=== PATIENT | female | born 1975 | race Caucasian/White ===

== ENCOUNTER 2016-12-08 02:56 | Inpatient (IN) | payer OTHER ==
[~2016-12-08] VITALS: Ht 160 cm; Wt 144.6 kg
[~2016-12-08 02:56] MED LIST: CLIN150C2 PO; HYDR-4003 PO; ONDA4TAB9 PO
[2016-12-08 02:58] VITALS: BP 147/95; PULSE 98; RESP 18; O2SAT 99
--- NOTE | 2016-12-08 03:11 | ED.REPORT ---
HPI-Abd Pain F 40 and Over Date of Service Dec 08, 2016 ED Provider: Corey Lang MD 41 year old female with a history of bowel obstructions, gastric bypass, and stomach stapling presents to the ER complaining of abdominal pain and vomiting onset yesterday. She also reports diarrhea this morning. Current pain is described as a feeling of severe constipation, but is different than that associated with prior bowel obstructions. Nursing Notes Stated Complaint: ABDOMINAL PAIN/VOMITING Chief Complaint: Female Abdominal Pain Nursing Notes Reviewed: Yes Allergies: Coded Allergies: morphine (Verified Allergy, Severe, 12/08/16) amoxicillin (Verified Allergy, Intermediate, Rash, 12/08/16) Scheduled Clindamycin HCl (Cleocin) 150 Mg Capsule 450 MG PO TID Scheduled PRN Hydrocodone-Acetaminophen 5-325 mg (Hydrocodone-Acetaminophen 5-325 mg) 1 Each Tablet 1 TABLET PO Q4H PRN PRN For Pain Ondansetron ODT (Zofran ODT) 4 Mg Tablet 4 MG PO Q4H PRN PRN For Nausea General Time Seen by MD: 03:03 Chief Complaint Abdominal pain, Vomiting moderate Hx Obtained From: Patient Arrived By: Walk-in Sudden in Onset?: No Onset Occurred: Yesterday Symptom Duration: Since onset Location: : Diffuse Quality: Painful Severity: Current: Moderate Severity: Maximum: Moderate Associated with: Reports: Diarrhea Context Related History: Reports: Bariatric surgery, Bowel obstruction Similar Sx Previous: Yes Past Medical History Past Medical History abd hernia- recurrent incisional hernia Prior bowel obstructions (last CT scan neg 10/2014) Past Surgical History Gastric bypass Stomach stapled for obesity Mesh for abd wall hernia Reports: Cholecystectomy, Tonsillectomy Smoking History Never Smoker Social History Alcohol Use: Denies alcohol use Drug Use: Denies drug use Other Social History: Good social support Ambulatory Status Independent Review of Systems Constitutional: Denies: Chills, Fever Respiratory: Denies: Non-productive cough, Shortness of breath Cardiovascular: Denies: Chest pain GI: Reports: Abdominal pain, Diarrhea, Nausea, Vomiting Female: Denies: Dysuria, Flank pain, Pelvic pain Complete sys rev & neg: except as marked. Physical Exam Difficult examination due to body habitus. Vital Signs Vital Signs (First) Date Time Temp Pulse Resp B/P Pulse Ox O2 Delivery O2 Flow Rate FiO2 12/08/16 02:58 36.6 98 18 147/95 99 Room Air Initial VS: Reviewed Head / Eyes: Atraumatic, Normocephalic Neck: Supple, Non-tender, Full range of motion Extremities: Vascular intact, Neuro intact, No swelling, No tenderness Skin: Warm, Dry, No cyanosis Neurologic: Alert, Oriented, Nonfocal General/Constitutional: Awake, Alert, Well developed, Well nourished Appearance / Presentation: Positive: Obese, morbidly Respiratory / Chest: Breath sounds NL, Breath sounds = bilat, No respiratory distress, No rales, No rhonchi, No wheezing, No stridor Cardiovascular: Heart rate NL, Regular rhythm, Heart sounds NL, Peripheral circulation NL Abdomen: Soft, No guarding, No rebound, No distention Tenderness/Guarding/Rebound: Positive: Tender diffuse Back: Inspection NL, Non-tender, No CVA tenderness Interpretation & Diagnostics X-Ray Abdominal Interpretation Normal. Paucity of bowel gas. Interpretation / Wet Read by: Wet read ED physician Re-Eval/Medical Decision Med Decision/Clinical Course 31-year-old female with a history of recurrent small bowel obstructions presents with abdominal pain. Initially a three-view abdomen was obtained which was non-diagnostic. IV line and labs were ordered at that point and her care is being turned over change of shift to Dr. Saunders. Re-Evaluation/Progress : Time of Eval: 04:59 Re-Evaluation/Progress Note: Discussed radiology results and updated patient on the plan of care. Counseled Regarding: Diagnosis Discharge & Departure Shift Change Sign-Out Patient Care Transferred: Yes Discussed Complaint(s): Yes Imaging Studies: Done, reviewed by me Primary Impression: Abdominal pain Abdominal location: generalized Qualified Code: R10.84 - Generalized abdominal pain Discharge Condition All VS Reviewed: Yes Condition: Stable Referrals: AURORA SCHERER (PCP) Care Transferred to: Dr. Saunders Care Transferred at: 06:00 Scribe Attestation Portions of this note were transcribed by Solomon Jolly. I, Dr. Lang, personally performed the history, physical exam and medical decision-making; I reviewed and confirmed the accuracy of the information in the transcribed note. Signed by: Karen Silva. 12/08/2016, 05:00 Corey Lang MD Dec 08, 2016 03:11 SOLOMON JOLLY Dec 08, 2016 03:17 Parviz Messina Dec 08, 2016 04:48
[2016-12-08] MEDS ORDERED: Ondansetron 8 mg ODT Tablet PO ONE (03:45)
[2016-12-08] MEDS ORDERED: 0.9% Sodium Chloride 1,000 ML IV ONE (04:36)
[2016-12-08] MEDS ORDERED: Ondansetron 2 mg/mL 2 mL Inj IVPUSH PRN ×3 (04:40→14:55)
[2016-12-08] MEDS ORDERED: Pantoprazole 4 mg/mL 10 mL Inj IVPUSH ONE (04:40)
[2016-12-08] MEDS ORDERED: Iohexol 300 mg/mL 30 mL Inj PO ONE (06:05)
[2016-12-08] MEDS: HYDROmorphone 0.5 mg/0.5 mL iSecure Syringe IVPUSH PRN ×3 (06:39→19:15)
[2016-12-08 06:44] LABS: BASOPHILS % (AUTO) 0.5 % (0-3); EOSINOPHILS % (AUTO) 0.9 % (0-5); MONOCYTES % (AUTO) 7.8 % (4-12); Mean Corpuscular Hemoglobin 27.9 pg (27.0-35.0); Mean Corpuscular Volume 87.2 fL (81-100); NEUTROPHILS % (AUTO) 72.8 % (40-74); Platelet Count 380 bil/L (150-400)
[2016-12-08 06:57] LABS: Magnesium 2.2 mg/dL (1.6-2.6)
[2016-12-08] MEDS ORDERED: Promethazine Inj 25 MG in Dextrose 5%-Pha MIX 50 ML IV ONE (07:40)
--- NOTE | 2016-12-08 08:56 | DRSVH ---
PROCEDURE: CT ABDOMEN AND PELVIS WITH CONTRAST ([id number]) INDICATIONS: vomiting ho SBO TECHNIQUE: After the administration of intravenous contrast, 5 mm thick sections acquired from the diaphragm to the symphysis. 5 mm coronal and sagittal reformats were acquired. For radiation dose reduction, the following was used: automated exposure control, adjustment of mA and/or kV according to patient chante e. COMPARISON: [facility], CT, ABD/PELVIS W/CON (PNL), 11/10/2014, 0:16. FINDINGS: Image quality: Excellent. ABDOMEN: Lung bases: Lung bases are clear. Heart size is normal. Solid organs: Liver and spleen are normal in size and enhancement. Gallbladder is surgically absent . No change in prominence of the extrahepatic bile duct caliber. The Pancreas enhances normally. No adrenal nodules. Kidneys demonstrate normal size and enhancement, without hydronephrosis. Peritoneum and bowel: Gastric bypass has been performed, as before. There is mild distention of the d uodenum. Moderate diffuse distention of the jejunum and proximal ileum is present . There is a gradua l transition between dilated and nondilated small bowel within the right lower quadrant of the abdome n, as noted on the montage panel. The terminal ileum is decompressed, as is the colon. The appendix i s not seen. No evidence of appendicitis. No free fluid or air. Nodes and vessels: No retroperitoneal or mesenteric adenopathy by size criteria. Aorta and inferior vena cava are normal in size. Miscellaneous: There is a 56 mm diameter fat-containing periumbilical hernia involving the left anter ior pelvic wall, which is slightly increased in size. PELVIS: Genitourinary: The urinary bladder is decompressed. Miscellaneous: No inguinal hernias or adenopathy. Bones: No suspicious bony lesions. No vertebral body compression fractures. IMPRESSION: 1. Small bowel obstruction. There is a transition point between dilated and nondilated small bowel wi thin the right lower quadrant of the abdomen. 2. Appendix not seen. No evidence of appendicitis. 3. Increased fat-containing periumbilical hernia. Dictated by: Wagner Campuzano M.D. on 12/08/2016 at 8:54 Approved by: Wagner Campuzano M.D. on 12/08/2016 at 8:54
--- NOTE | 2016-12-08 09:03 | DRSVH ---
PROCEDURE: X-RAY ACUTE ABDOMINAL SERIES ([id number]) INDICATIONS: abd pain, Hx SBO TECHNIQUE: One view chest and two views of the abdomen were acquired. COMPARISON: [facility], CR, XR ABD ACUTE SERIES 3VW, 06/26/2015, 1:07. [facility], CR, ABD ACUTE SERIES, 11/09/2014, 22:05. FINDINGS: Surgical changes and devices: None. Chest: Lungs are clear. Heart size is normal. No pleural effusions. No pneumoperitoneum. Abdomen: Bowel gas pattern is normal. No suspicious calcifications. Visualized solid organ contour s appear normal. Bones: No suspicious bony lesions. IMPRESSION: Normal for age. No small bowel obstruction pattern seen. Body habitus is large, and dep ending on clinical status followup by CT scanning may be warranted for more accurate assessment. Dictated by: Boom Nunn M.D. on 12/08/2016 at 9:00 Approved by: Boom Nunn M.D. on 12/08/2016 at 9:00
[2016-12-08 09:40] VITALS: BP 137/88; PULSE 71; RESP 12; O2SAT 96
[2016-12-08] MEDS ORDERED: 0.9% Sodium Chloride 1,000 ML IV SCH (09:46)
[2016-12-08 10:38] VITALS: BP 149/101; PULSE 78; RESP 18; O2SAT 98
--- NOTE | 2016-12-08 10:40 | NUR ---
Admit Pt arrived to [facility] rm 1015 from the ED via gurney at approx 1030. Rec'd report from Tanna Hill RN. IV TKO, NG tube connected to suction by tack welder. ICE MAKER oriented pt to the room and call light. Pt denies nausea or pain at this time. Pt was able to walk to the hospital bed with a steady gait.
[2016-12-08] MEDS ORDERED: ESOM40CA41 PO (11:31)
[2016-12-08] MEDS ORDERED: MAGN500C4 PO (11:32)
[2016-12-08] MEDS ORDERED: Influenza (Adult) Vaccine 0.5 mL Syringe IM ONE (12:10)
[2016-12-08] MEDS ORDERED: Polyethylene Glycol (PEG) 17 Gm Powder PO PRN (14:55)
[2016-12-08] MEDS ORDERED: Alum-Mag Hydrox-Simeth 30 mL Suspension PO PRN (14:55)
--- NOTE | 2016-12-08 15:15 | PCM.HPMED ---
Subjective Date of Service Dec 08, 2016 Primary Provider: Admitting Physician: Jozef Loving Primary Care Physician: Blaine Clement Attending Physician: Jozef Loving Chief Complaint: abdominal pain, vomiting History of Present Illness: 41 year old female with past history most notable for multiple abdominal surgeries and small bowel obstruction (as noted below) presents today with report of abdominal pain that began yesterday and nausea and vomiting that started earlier this morning. Her symptoms reminded her of her prior episode of small bowel obstruction. In the ED NG tube was placed and patient reports improvement in her abdominal pain now after having received a dose of IV Dilaudid. Allergies Coded Allergies: morphine (Verified Allergy, Severe, 12/08/16) amoxicillin (Verified Allergy, Intermediate, Rash, 12/08/16) Home Medications Esomeprazole Magnesium 40 Mg Capsule.Dr 40 Mg PO DAILY Magnesium Oxide 500 Mg Capsule 1,000 Mg PO HS Exam Vital Signs & I/O Vital Sign- Last 8 Hours Date Time Temp Pulse Resp B/P Pulse Ox O2 Delivery O2 Flow Rate FiO2 12/08/16 10:38 36.6 78 18 149/101 98 Room Air 12/08/16 10:11 36.6 71 12 137/88 96 Room Air 12/08/16 09:40 71 12 137/88 96 Room Air Lab & Micro Results Laboratory Tests Test 12/08/16 06:25 12/08/16 07:55 White Blood Count 8.7th/mm3 (3.8-10.1) Red Blood Count 4.94mil/mm3 (3.90-5.20) Hemoglobin 13.8g/dL (12.0-15.6) Hematocrit 43.1% (35.0-46.0) Mean Corpuscular Volume 87.2fL (81-100) Mean Corpuscular Hemoglobin 27.9pg (27.0-35.0) Mean Corpuscular Hemoglobin Concent 32.0% (32.0-37.0) Red Cell Distribution Width 13.4% (12.3-15.4) Platelet Count 380bil/L (150-400) Neutrophils (%) (Auto) 72.8% (40-74) Lymphocytes (%) (Auto) 17.8% (14-46) Monocytes (%) (Auto) 7.8% (4-12) Eosinophils (%) (Auto) 0.9% (0-5) Basophils (%) (Auto) 0.5% (0-3) Sodium Level 139mEq/L (134-144) Potassium Level 5.0mEq/L (3.5-5.2) Chloride Level 100mEq/L (97-108) Carbon Dioxide Level 25mmol/L (18-29) Blood Urea Nitrogen 9mg/dL (6-24) Creatinine 0.58mg/dL (0.57-1.00) Estimat Glomerular Filtration Rate 163mL/min (>59) Glucose Level 117mg/dL (60-99) Calcium Level 9.2mg/dL (8.5-10.1) Magnesium Level 2.2mg/dL (1.6-2.6) Total Bilirubin 0.5mg/dL (0.0-1.2) Aspartate Amino Transf (AST/SGOT) 22U/L (0-50) Alanine Aminotransferase (ALT/SGPT) 15U/L (0-32) Alkaline Phosphatase 88U/L (25-150) Total Protein 7.3g/dL (6.4-8.4) Albumin 3.8g/dL (3.4-5.0) Lipase 20U/L (13-60) Hold Urine Received (Received) Result Diagram: 12/08/1662412/08/16624 Review of Systems: Constitutional: Negative, except as otherwise mentioned in the history above. Ophthalmologic: Negative, except as otherwise mentioned in the history above. Cardiovascular: Negative, except as otherwise mentioned in the history above. Respiratory: Negative, except as otherwise mentioned in the history above. Gastrointestinal: Negative, except as otherwise mentioned in the history above. Genitourinary: Negative, except as otherwise mentioned in the history above. Musculoskeletal: Negative, except as otherwise mentioned in the history above. Neurological: Negative, except as otherwise mentioned in the history above. Psychiatric: Negative, except as otherwise mentioned in the history above. Hematologic/Lymphatic: Negative, except as otherwise mentioned in the history above. Allergic/Immunologic: Negative, except as otherwise mentioned in the history above. PMH 1. GERD 2. Obesity Surgical History 1. Gastric stapling around 2002 2. s/p around 2004 3. ventral hernia repair and mesh placement around 2008 4. First episode of SBO around 2011 Family History Mother with lung cancer in her 60's Father with history of colon cancer in his late 60's Both parents with hypertension Social History Hx Alcohol Use: Yes (occ) Hx Substance Use: No Smoking Status: Never Smoker Exam Vital Signs Vital Sign - Last Date Time Temp Pulse Resp B/P Pulse Ox O2 Delivery O2 Flow Rate FiO2 12/08/16 10:38 36.6 78 18 149/101 98 Room Air General: Alert, Oriented X3, Cooperative, No Acute Distress Head: Normal Eyes: PERRLA, EOMI, Scleral Anicteric Nose: Mucous Membr Moist/[place] Mouth: Mucous Membr Moist/[place] Neck: Supple Chest & Lungs: Chest Wall Normal, Clear to auscultation & percussion Cardiovascular: Regular Rate/Rhythm Abdomen: Tender (mild and diffuse. no reboung. no guarding), Non-distended, Normoactive bowel tones, Soft, Other (NG tube in place) Extremities: No cyanosis/clubbing/edma bilat Neurological: Grossly Neurologically Intact, Cranial Nerves 2-12 Intact, Normal Speech Lab and Diagnostics Result Diagram: 12/08/1662412/08/16624 X-Rays, CTs and MRIs Date of Service: 12/08/164 PROCEDURE: X-RAY ACUTE ABDOMINAL SERIES ([id number]) . IMPRESSION: Normal for age. No small bowel obstruction pattern seen. Body habitus is large, and depending on clinical status followup by CT scanning may be warranted for more accurate assessment. Dictated by: Boom Nunn M.D. on 12/08/2016 at 9:00 Approved by: Boom Nunn M.D. on 12/08/2016 at 9:00 ------ Date of Service: 12/08/16 0601 PROCEDURE: CT ABDOMEN AND PELVIS WITH CONTRAST ([id number]) IMPRESSION: 1. Small bowel obstruction. There is a transition point between dilated and nondilated small bowel within the right lower quadrant of the abdomen. 2. Appendix not seen. No evidence of appendicitis. 3. Increased fat-containing periumbilical hernia. Dictated by: Wagner Campuzano M.D. on 12/08/2016 at 8:54 Approved by: Wagner Campuzano M.D. on 12/08/2016 at 8:54 Assessment & Plan 41 year old female with prior history of SBO presents with acute onset of abdominal pain and vomiting with imaging suggestive of acute SBO # Acute SBO. present on admission. ongoing - c/w NG tube - NPO - supportive care including IVF, anti-emetics and pain medication as needed - encourage ambulation - if symptoms persist in next 24-48h will consider official surgery consult. # History of GERD - IV Protonix while NPO Expected length of hospital stay is greater than 2 midnights and likely 2-3 days GI Prophylaxis: Proton Pump Inhibitor VTE Prophylaxis: Sub-Q Heparin (Unfractionated) Resuscitation Status: CPR: Attempt Resuscitation (discussed and verified with the patient) Time spent 50 min Jozef Loving Dec 08, 2016 15:15
[2016-12-08 15:20] VITALS: BP 129/83; PULSE 68; RESP 18; O2SAT 97
[2016-12-08] MEDS: Dextrose 5% 0.45% NaCl 1,000 ML IV SCH ×2 (15:20→19:15)
[2016-12-08] MEDS: Heparin 5,000 Unit/mL Inj SUBQ SCH ×2 (17:21→23:55)
[2016-12-08 19:56] VITALS: BP 118/77; PULSE 66; RESP 18; O2SAT 94
[2016-12-08 23:57] VITALS: BP 144/93; PULSE 85; RESP 18; O2SAT 93
[2016-12-09] MEDS: HYDROmorphone 0.5 mg/0.5 mL iSecure Syringe IVPUSH PRN (02:27)
--- NOTE | 2016-12-09 02:41 | NUR ---
Bowel Function Abd. soft with BT.Passing flatus and having loose stools x4 thus far.NG clamped and denies nausea.Taking occassional sips and chips and lawanda. well.Pain cramping in nature and controlled with IVP dilaudid.Sleeping soundly at this time and resting comfortably.Will cont. to monitor.
[2016-12-09 05:20] VITALS: BP 119/76; PULSE 59; RESP 20; O2SAT 98
[2016-12-09] MEDS ORDERED: Pantoprazole 4 mg/mL 10 mL Inj IVPUSH SCH (07:30)
[2016-12-09] MEDS: Heparin 5,000 Unit/mL Inj SUBQ SCH (08:28)
[2016-12-09 09:46] VITALS: BP 133/82; PULSE 71; RESP 22; O2SAT 98
[2016-12-09] MEDS: Dextrose 5% 0.45% NaCl 1,000 ML IV SCH (09:52)
--- NOTE | 2016-12-09 13:00 | NUR ---
Bowel Function Pt had no c/o nausea and no vomiting. Pt has bowel tones and passing gas. Pt has had multiple loose stools and states that she is "feeling better." She has had some occasional abdominal cramping but says that it feels much better. Pt tolerated her lunch of macaroni and cheese. Will continue to monitor.
--- NOTE | 2016-12-09 13:31 | PCM.DIMED ---
Discharge Instructions Date of Service Dec 09, 2016 Dates of Hospitalization Dec 08, 2016 at 10:16 Discharge Diagnosis Discharge Diagnosis # Acute small bowel obstruction. present on admission. clinically resolved. # History of gastroesophageal reflux disease (GERD) Diet No restrictions Activity No restrictions Call your provider Fever or Chills, Shortness of breath, Vomitting, Excessive diarrhea Patient Instructions Seek immediate medical attention if any new or worsening signs or symptoms occur. Follow-up plan 1. Followup with primary care provider in about 1-2 weeks Jozef Loving Dec 09, 2016 13:31
--- NOTE | 2016-12-09 14:25 | NUR ---
NG Tube D/C'd NG tube at 1030.
--- NOTE | 2016-12-09 14:26 | NUR ---
Discharge Pt was d/c'd from [facility] room 1015 at 1415 via private vehicle home. All discharge instructions and education was done with pt. All questions were answered. No new RX were given. No items in the safe or in the pharmacy. All belongings are with the pt. Pt to follow up with PCP in 1-2 weeks. Pt will make her apt.
--- NOTE | 2016-12-09 16:39 | PCM.DC.MED ---
Discharge Summary Date of Service Dec 09, 2016 Dates of Hospitalization Date of Hospital Admission Dec 08, 2016 at 10:16 Date of Discharge: Dec 09, 2016 Providers: Admitting Physician: Jozef Loving Primary Care Physician: Blaine Clement Attending Physician: Jozef Loving Diagnosis at Time of Discharge Diagnosis at Time of Discharge # Acute small bowel obstruction. present on admission. clinically resolved. # History of gastroesophageal reflux disease (GERD) Procedures XRay, CTs & MRIs Date of Service: 12/08/16 0314 PROCEDURE: X-RAY ACUTE ABDOMINAL SERIES ([id number]) . IMPRESSION: Normal for age. No small bowel obstruction pattern seen. Body habitus is large, and depending on clinical status followup by CT scanning may be warranted for more accurate assessment. Dictated by: Boom Nunn M.D. on 12/08/2016 at 9:00 Approved by: Boom Nunn M.D. on 12/08/2016 at 9:00 ------ Date of Service: 12/08/16 0601 PROCEDURE: CT ABDOMEN AND PELVIS WITH CONTRAST ([id number]) IMPRESSION: 1. Small bowel obstruction. There is a transition point between dilated and nondilated small bowel within the right lower quadrant of the abdomen. 2. Appendix not seen. No evidence of appendicitis. 3. Increased fat-containing periumbilical hernia. Dictated by: Wagner Campuzano M.D. on 12/08/2016 at 8:54 Approved by: Wagner Campuzano M.D. on 12/08/2016 at 8:54 Brief History 41 year old female with past history most notable for multiple abdominal surgeries and small bowel obstruction (as noted below) presents today with report of abdominal pain that began yesterday and nausea and vomiting that started earlier this morning. Her symptoms reminded her of her prior episode of small bowel obstruction. In the ED NG tube was placed and patient reports improvement in her abdominal pain now after having received a dose of IV Dilaudid. Hospital Course # Acute SBO. present on admission. - clinically resolved faster than expected - pt had a large BM the night of admission - she continued to have BM and flatus by day of d/c. NG tube was removed and she has tolerated advanced diet without further n/v or abd pain and requesting d /c home # History of GERD. stable by day of d/c lungs CTA bilat. abdomen soft, nt, nd, +bs Exam Vital Signs (Last) Date Time Temp Pulse Resp B/P Pulse Ox O2 Delivery O2 Flow Rate FiO2 12/09/16 09:46 36.7 71 22 133/82 98 Room Air Test 12/08/16 06:25 12/08/16 07:55 White Blood Count 8.7th/mm3 (3.8-10.1) Red Blood Count 4.94mil/mm3 (3.90-5.20) Hemoglobin 13.8g/dL (12.0-15.6) Hematocrit 43.1% (35.0-46.0) Mean Corpuscular Volume 87.2fL (81-100) Mean Corpuscular Hemoglobin 27.9pg (27.0-35.0) Mean Corpuscular Hemoglobin Concent 32.0% (32.0-37.0) Red Cell Distribution Width 13.4% (12.3-15.4) Platelet Count 380bil/L (150-400) Neutrophils (%) (Auto) 72.8% (40-74) Lymphocytes (%) (Auto) 17.8% (14-46) Monocytes (%) (Auto) 7.8% (4-12) Eosinophils (%) (Auto) 0.9% (0-5) Basophils (%) (Auto) 0.5% (0-3) Sodium Level 139mEq/L (134-144) Potassium Level 5.0mEq/L (3.5-5.2) Chloride Level 100mEq/L (97-108) Carbon Dioxide Level 25mmol/L (18-29) Blood Urea Nitrogen 9mg/dL (6-24) Creatinine 0.58mg/dL (0.57-1.00) Estimat Glomerular Filtration Rate 163mL/min (>59) Glucose Level 117mg/dL (60-99) Calcium Level 9.2mg/dL (8.5-10.1) Magnesium Level 2.2mg/dL (1.6-2.6) Total Bilirubin 0.5mg/dL (0.0-1.2) Aspartate Amino Transf (AST/SGOT) 22U/L (0-50) Alanine Aminotransferase (ALT/SGPT) 15U/L (0-32) Alkaline Phosphatase 88U/L (25-150) Total Protein 7.3g/dL (6.4-8.4) Albumin 3.8g/dL (3.4-5.0) Lipase 20U/L (13-60) Hold Urine Received (Received) Discharge Medications Discharge Medications Esomeprazole Magnesium (Nexium) 40 Mg Capsule.dr 40 MG PO DAILY (Reported) Magnesium Oxide (Magnesium) 500 Mg Capsule 1,000 MG PO HS (Reported) Followup Plan Disposition: Home Follow-up plan 1. Followup with primary care provider in about 1-2 weeks Discharge Diet: No restrictions Discharge Activity: No restrictions Patient Instructions Seek immediate medical attention if any new or worsening signs or symptoms occur. Time spent 30 min copies to: [facility] Jozef Avitia Dec 09, 2016 16:39
== END 2016-12-09 14:18 | disposition home or self-care (01) | DRG 390 ==
LOC: SED 02:56 → OSC 10:16
PROVIDERS: ADMIT Internal Medicine; ATTEND Internal Medicine
PROC: 0D9670Z Drainage of Stomach with Drainage Device, Via Natural or Artificial Opening (ICD-10-PCS; principal; 2016-12-08)
DX: K56.69 Other intestinal obstruction (principal); K21.9 Gastro-esophageal reflux disease without esophagitis; Z98.84 Bariatric surgery status

== ENCOUNTER 2017-03-30 20:40 | Emergency (ER) | payer OTHER ==
[~2017-03-30] VITALS: Ht 160 cm; Wt 143.0 kg
[~2017-03-30 20:40] MED LIST changes: -CLIN150C2 PO; +ESOM40CA41 PO; -HYDR-4003 PO; +MAGN500C4 PO; -ONDA4TAB9 PO
[2017-03-30 21:20] VITALS: BP 137/98; RESP 18; O2SAT 96
--- NOTE | 2017-03-30 22:05 | ED.REPORT ---
HPI-General Illness Date of Service March 30, 2017 ED Provider: Corey Lang MD Pt is a 41 y.o. female who presents to the ED c/o left jaw pain and swelling onset yesterday. Pt reports associated nasal congestion, intermittent headaches , and left anterior neck tenderness. She denies a fever. Pt states that she works from home and denies any known exposure to mumps. Nursing Notes Stated Complaint: NECK PAIN,LUMP Chief Complaint: ENT & Mouth Nursing Notes Reviewed: Yes Allergies: Coded Allergies: morphine (Verified Allergy, Severe, 12/08/16) amoxicillin (Verified Allergy, Intermediate, Rash, 12/08/16) Scheduled Esomeprazole Magnesium (Nexium) 40 Mg Capsule.dr 40 MG PO DAILY Magnesium Oxide (Magnesium) 500 Mg Capsule 1,000 MG PO HS General Time Seen by MD: 21:38 Chief Complaint Other (Jaw pain and swelling, left) Hx Obtained From: Patient Arrived By: Walk-in Sudden in Onset?: Yes Onset Occurred: Yesterday Symptom Duration: Since onset Location: : Face (Jaw, left): Neck Quality: Painful Severity: Current: Mild Severity: Maximum: Moderate Recent Healthcare: No recent doctor visit, No recent hospitalization Similar Sx Previous: No Past Medical History Past Medical History abd hernia- recurrent incisional hernia Prior bowel obstructions (last CT scan neg 10/2014) Past Surgical History Gastric bypass Stomach stapled for obesity Mesh for abd wall hernia Reports: Cholecystectomy, Tonsillectomy Smoking History Never Smoker Social History Alcohol Use: Denies alcohol use Drug Use: Denies drug use Other Social History: Good social support Ambulatory Status Independent Review of Systems Jaw pain, left Jaw swelling, left Full Review of Systems Constitutional: Denies: Fever Ears / Nose / Throat: Reports: Nasal congestion Musculoskeletal: Reports: Neck pain Neurologic: Reports: Headache Complete sys rev & neg: except as marked. Physical Exam Vital Signs Vital Signs Date Time Temp Pulse Resp B/P Pulse Ox O2 Delivery O2 Flow Rate FiO2 03/30/17 22:57 87 16 145/89 97 Room Air 03/30/17 21:20 36.4 76 18 137/98 96 Room Air Initial VS: Reviewed, Vital signs normal Abdomen / GI: No distention Extremities: Vascular intact, Neuro intact Skin: Warm, Dry, No cyanosis Neurologic: Alert, Oriented, Nonfocal Psychiatric: Mood/affect normal, Behavior normal, Normal thought content General/Constitutional: Awake, Alert, No acute distress, Well appearing, Well developed, Well hydrated, Well nourished, Not toxic appearing Appearance / Presentation: Positive: Obese, morbidly Head / Eyes: Atraumatic, Normocephalic, PERRL ENT: Atraumatic, Airway patent, Mucous membranes moist Swelling and tenderness over angle of left jaw Neck: Atraumatic Soft Tissue Neck: Positive: Cervical adenopathy L... Respiratory / Chest: Atraumatic, Breath sounds NL, Breath sounds = bilat, No respiratory distress Cardiovascular: Heart rate NL, Regular rhythm, Heart sounds NL, Peripheral circulation NL Interpretation & Diagnostics Lab Results Interpretation Test 03/30/17 22:50 03/31/17 01:28 Hold Purple Top Tube Received (Received) Lab Results Interpretation: Mumps IgG, IgM, and buccal swab are pending Re-Eval/Medical Decision Med Decision/Clinical Course 41-year-old female who has mild URI symptoms for a day and a half with development of left parotitis. We are in the midst of a community outbreak in this [facility], especially amongst people from the [facility]. No known contacts with anyone with mumps or from that community. Mumps IgG, IgM, and buccal swab were all obtained and are pending. It is recommended that all her previous contacts be immunized if not already fully protected. Her case will be reported to the health department for appropriate epidemiological follow-up later today. Source of Hx: Old records Time of Eval: 22:50 Re-Evaluation/Progress Note: Pt rechecked. Discussed plan for Health Department to contact the pt. Pt notified that lab results will be available in the next few days and she will be contacted regarding them. Pt understands and agrees with plan for discharge. Counseled Regarding: Diagnosis, Need for follow-up, When/why to return to ED Discharge & Departure Primary Impression: Acute parotitis Disposition: Home Discharge Condition All VS Reviewed: Yes Condition: Improved Patient Instructions: Mumps (ED) Additional Instructions: In the setting of a community outbreak of mumps, the swelling of the salivary gland is most likely mumps. We have initiated testing to see for sure, but that will take a couple of days. Someone from the health department will call you tomorrow to gather more information about your previous exposures and the people you have contacted. You need to stay away from other people in the meantime, and if you have to associated with others you need to wear a mask. You can get more information in the morning from the health department about this. Make sure all of your contacts are fully immunized to mumps. [facility] KAYLENE (PCP) Karen Attestation Portions of this note were transcribed by Bandar Arzate. I, Dr. Lang personally performed the history, physical exam and medical decision-making; I reviewed and confirmed the accuracy of the information in the transcribed note. Signed by: Karen Roach, 03/30/17 and [id number]. copies to: [facility] Corey Zamudio MD March 30, 2017 22:05 BANDAR ARZATE March 30, 2017 22:25
[2017-03-30 22:57] VITALS: BP 145/89; PULSE 87; RESP 16; O2SAT 97
== END 2017-03-30 23:01 | disposition home or self-care (01) ==
LOC: SED 20:40
DX: K11.21 Acute sialoadenitis (principal); Z88.1 Allergy status to other antibiotic agents; Z88.5 Allergy status to narcotic agent

== ENCOUNTER 2017-04-03 06:48 | Emergency (ER) | payer OTHER ==
[~2017-04-03] VITALS: Ht 160 cm; Wt 143.6 kg
--- NOTE | 2017-04-03 07:01 | ED.REPORT ---
HPI-Facial Injury Date of Service April 03, 2017 ED Provider: Rene Saunders DO 41 year old female presents to the ER complaining of rash and swelling around her left eye onset four days ago. Symptoms began as a red lump above her left eye. She in initially thought that it was a developing pimple and treated with warm compresses and toothpaste, but then became concerned when she awakened with worsening pain and diffuse swelling around her left eye. She endorses a "burning" sensation and itching to the affected area. Patient denies any blistering, oozing, or purulent drainage of the affected area. She was seen here in the department four days ago complaining of left neck pain and swelling , though she reports that these symptoms are mostly resolved. At that time there was concern for mumps. Nursing Notes Stated Complaint: POSS MUMPS/INFECTED EYE Nursing Notes Reviewed: Yes Allergies: Coded Allergies: morphine (Verified Allergy, Severe, 12/08/16) amoxicillin (Verified Allergy, Intermediate, Rash, 12/08/16) Scheduled Clindamycin (Clindamycin) 300 Mg Capsule 450 MG PO TID Esomeprazole Magnesium (Nexium) 40 Mg Capsule.dr 40 MG PO DAILY Magnesium Oxide (Magnesium) 500 Mg Capsule 1,000 MG PO HS Valacyclovir (Valacyclovir) 1,000 Mg Tablet 1,000 MG PO TID General Time Seen by Provider: 07:01 Chief Complaint Swelling (Left Eye) Hx Obtained From: Patient Arrived By: Walk-in Onset Occurred: 4 days ago Symptom Duration: Since onset Location: : Lid left Quality: Painful Severity: Current: Moderate Severity: Maximum: Moderate Similar Sx Previous: No Past Medical History Past Medical History abd hernia- recurrent incisional hernia Prior bowel obstructions (last CT scan neg 10/2014) Past Surgical History Gastric bypass Stomach stapled for obesity Mesh for abd wall hernia Reports: Cholecystectomy, Tonsillectomy Smoking History Never Smoker Social History Alcohol Use: Denies alcohol use Drug Use: Denies drug use Other Social History: Good social support Ambulatory Status Independent Review of Systems Review of Systems Note: +Left Eye Swelling Constitutional: Denies: Chills, Fever Eyes: Reports: Eye pain left, Denies: Discharge bilateral, Visual loss bilateral Skin: Reports Rash Complete sys rev & neg: except as marked. Physical Exam Initial Vital Signs Vital Signs (First) Date Time Temp Pulse Resp B/P Pulse Ox O2 Delivery O2 Flow Rate FiO2 04/03/17 07:03 36.9 78 18 156/91 95 Room Air Initial VS: Reviewed Respiratory: Breath sounds normal, Clear to auscultation, No respiratory distress Cardiovascular: Regular rate & rhythm, Heart sounds normal, Intact distal pulses Abdomen / GI: Soft, Non-tender, No guarding, No rebound, No distention Extremities: Vascular intact, Neuro intact, No swelling, No tenderness Skin: Warm, Dry, No cyanosis Head / Eyes: Normocephalic, PERRL, EOMI (without pain), No scleral icterus, Conjunctiva NL, Cornea clear, No corneal abrasion Left periorbital swelling and erythema. 3 punctate scabs to the left upper eyelid. ENT: Atraumatic, Airway patent, Mucous membranes moist, Pharynx NL, Nose exam NL, No sinus tenderness, No facial swelling, Gums/dentition NL Neck: Supple, Full range of motion, Non-tender, No midline vertebral tend Mild submandibular swelling. Neurologic: Oriented X3, Speech NL, No motor deficits, No sensory deficits General/Constitutional: Awake, Alert, Well developed, Well nourished Appearance / Presentation: Positive: Obese Procedures Slit Lamp Exam No fluroscein uptake. No dendritic lesions. Time: 07:58 Procedure Performed by: ED physician Which Eye: Left Eyelid / Conjunctiva / Sclera: Sclera normal Cornea/Ant Chamber/Iris/Lens: Cornea normal Vitreous / Retina / Optic Nerv: Retina normal Re-Eval/Medical Decision Med Decision/Clinical Course Med Decision/Clinical Course: Overall this looks like periorbital cellulitis however some of the features of her story sound likely may be shingles, clear liquid coming out of the wound, as well as antecedent pain. This has no eye involvement at this time, there is no ear canal involvement and there only 3 very small lesions however, it seems reasonable to cover for both shingles and periorbital sialitis which seems more likely. Strict return and follow-up precautions are given. Source of Hx: Old records Re-Evaluation/Progress #1: Time of Eval: 07:58 Re-Evaluation/Progress Note: Completed eye examination. Re-Evaluation/Progress #2: Time of Eval: 08:32 Re-Evaluation/Progress Note: Discussed eye examination findings and plan to discharge. Patient is amenable to the plan. Return precautions given. All other questions addressed. 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 Take Valtrex and clindamycin as prescribed. It is important that you finish the entire course of clindamycin, even if symptoms improve. Follow up with your primary care doctor or follow up with your comedian in 48 hours. Return to the ER if you develop any new or worsening symptoms. Referrals: [facility]UROR[facility] SCHERER (PCP) Karen Attestation Portions of this note were transcribed by Solomon Jolly. I, Dr. Saunders, personally performed the history, physical exam and medical decision-making; I reviewed and confirmed the accuracy of the information in the transcribed note. Signed by: Karen Silva, 04/03/2017 and 08:33 copies to: [facility] Timothy S DO April 03, 2017 07:01 SOLOMON JOLLY April 03, 2017 07:07
[2017-04-03 07:03] VITALS: BP 156/91; PULSE 78; RESP 18; O2SAT 95
[2017-04-03] MEDS ORDERED: Tetracaine 0.5% 4 mL Ophthalmic Solution ONE (07:37)
[2017-04-03] MEDS ORDERED: Fluorescein 0.6 mg Ophthalmic Strip ONE (07:37)
[2017-04-03] MEDS ORDERED: VALA100026 PO (08:24)
[2017-04-03] MEDS ORDERED: CLIN-78 PO (08:24)
== END 2017-04-03 08:43 | disposition home or self-care (01) ==
LOC: SED 06:48
DX: L03.213 Periorbital cellulitis (principal); Z88.1 Allergy status to other antibiotic agents; Z88.5 Allergy status to narcotic agent

== ENCOUNTER 2017-04-04 05:34 | Emergency (ER) | payer OTHER ==
[~2017-04-04] VITALS: Ht 160 cm; Wt 143.6 kg
[~2017-04-04 05:34] MED LIST changes: +CLIN-78 PO; +VALA100026 PO
[2017-04-04 05:37] VITALS: BP 129/80; PULSE 86; RESP 18; O2SAT 99
--- NOTE | 2017-04-04 06:03 | ED.REPORT ---
HPI-Eye Problem Date of Service April 04, 2017 ED Provider: Rene Saunders DO A 41 year old female with a history of bowel obstruction presents to the ED complaining of swelling of the left eye. The pt was diagnosed with mumps five days ago and seen in the ED for possible shingles yesterday. She was discharged with a prescription for Valtrex and Clindamycin. The pt has been taking these as directed since yesterday afternoon. She noticed this morning, however, that the swelling had worsened and she is now experiencing intermittent burning in the eye. This is accompanied by headache, intermittent sharp pains to the left ear, itching and persistent rash of the left eye. The pt has a follow up appointment scheduled with her PCP this morning. Nursing Notes Stated Complaint: L EYE INJURY Chief Complaint: General Complaint Nursing Notes Reviewed: Yes Allergies: Coded Allergies: morphine (Verified Allergy, Severe, 04/04/17) amoxicillin (Verified Allergy, Intermediate, Rash, 12/08/16) Scheduled Clindamycin (Clindamycin) 300 Mg Capsule 450 MG PO TID Esomeprazole Magnesium (Nexium) 40 Mg Capsule.dr 40 MG PO DAILY Magnesium Oxide (Magnesium) 500 Mg Capsule 1,000 MG PO HS Valacyclovir (Valacyclovir) 1,000 Mg Tablet 1,000 MG PO TID General Time Seen by MD: 06:00 Chief Complaint Left eye affected Hx Obtained From: Patient Arrived By: Walk-in Sudden in Onset?: No Recent Healthcare: No recent hospitalization, Recent doctor visit Past Medical History Past Medical History abd hernia- recurrent incisional hernia Prior bowel obstructions (last CT scan neg 10/2014) Past Surgical History Gastric bypass Stomach stapled for obesity Mesh for abd wall hernia Reports: Cholecystectomy, Tonsillectomy Smoking History Never Smoker Social History Alcohol Use: Denies alcohol use Drug Use: Denies drug use Other Social History: Good social support Ambulatory Status Independent Review of Systems Review of Systems Note: left ear pain Constitutional: Denies: Fever Skin: Reports Itching, Reports Rash, Reports Swelling (left eye) Complete sys rev & neg: except as marked. Respiratory: Denies: Non-productive cough, Shortness of breath Cardiovascular: Denies: Chest pain GI: Denies: Abdominal pain Musculoskeletal: Denies: Back pain Physical Exam Initial Vital Signs Vital Signs (First) Date Time Temp Pulse Resp B/P Pulse Ox O2 Delivery O2 Flow Rate FiO2 5/9/17 05:37 37 86 18 129/80 99 Room Air Initial VS: Reviewed Head / Eyes: Normocephalic, PERRL, EOMI no dendritic lesions conjunctiva normal without erythema upper eyelid and supraorbital area with three crusted lesions and mild surrounding edema General/Constitutional: Awake, Alert ENT: Atraumatic, Airway patent, Mucous membranes moist no vesicular lesions to the tip of the nose, ear canal, or mouth Skin: Atraumatic, Color NL, No rash, Warm, Dry Neurologic: Oriented X3, Speech NL, No motor deficits, No sensory deficits Neck: Atraumatic, Supple, Full range of motion Respiratory / Chest: Atraumatic, Breath sounds NL, Breath sounds = bilat, No respiratory distress Cardiovascular: Heart rate NL, Regular rhythm, Heart sounds NL Abdomen: Atraumatic, Soft, Non-tender Back: Atraumatic, Full range of motion Upper Extremity / MS: Atraumatic, Full range of motion Lower Extremity / Pelvis / MS: Atraumatic, Full range of motion Psychiatric: Affect NL, Mood NL Procedures Slit Lamp Exam no fluorescein uptake no dendritic lesions upper eyelid and supraorbital area with three crusted lesions and mild surrounding edema Time: 06:16 Procedure Performed by: ED physician Which Eye: Left Eyelid / Conjunctiva / Sclera: Conjunctiva normal Re-Eval/Medical Decision Med Decision/Clinical Course Again findings of periorbital cellulitis, there is no uptake of fluorescein eye there are no obvious vesicular lesions. She does have 3 excoriated lesions that could be small areas of folliculitis with surrounding cellulitis. She is receiving treatment with both clindamycin and valacyclovir, she started that yesterday afternoon. There is no pain with extraocular movement no proptosis, the eyeball itself looks normal. This does not seem at this time to represent orbital cellulitis however, the patient has been given strict return in follow-up precautions as she will need close follow-up. She does endorse that she will see her primary care doctor tomorrow. Return in follow-up precautions once again discussed both verbally and at discharge. Source of Hx: Old records Re-Evaluation/Progress : Time of Eval: 06:16 Patient Status: Condition improved Re-Evaluation/Progress Note: Pt rechecked and slit lamp exam is performed without complications. The diagnosis and plan for discharge are discussed. The pt understands and agrees with the plan. All questions are addressed at this time. Counseled Regarding: Diagnosis, Need for follow-up, When/why to return to ED Discharge & Departure Primary Impression: Periorbital cellulitis of left eye Disposition: Home Discharge Condition All VS Reviewed: Yes Condition: Stable Additional Instructions: Continue your current medications. Use ibuprofen as needed. Follow-up with your regular doctor in the next few days. Return to ER if develop severe pain with movement of the eye, loss of vision, high fever, increasing number of blisters, or other concerns. [facility] ([facility] Karen Attestation Portions of this note were transcribed by Barbara Mott. I, Dr. Saunders personally performed the history, physical exam and medical decision-making; I reviewed and confirmed the accuracy of the information in the transcribed note. Signed by: Karen Reich, 04/04/2017 and [id number]. copies to: [facility] Rene De León DO April 04, 2017 06:03 BARBARA MOTT April 04, 2017 06:10
[2017-04-04] MEDS ORDERED: Fluorescein 0.6 mg Ophthalmic Strip ONE (06:15)
== END 2017-04-04 06:35 | disposition home or self-care (01) ==
LOC: SED 05:34
DX: L03.213 Periorbital cellulitis (principal); R51 Headache; H92.02 Otalgia, left ear; L29.9 Pruritus, unspecified; R21 Rash and other nonspecific skin eruption; Z88.1 Allergy status to other antibiotic agents; Z88.5 Allergy status to narcotic agent